=== PATIENT | male | born 1990 | race American Indian/Alaskan Native ===

== ENCOUNTER 2019-03-30 08:55 | Emergency (ER) | payer SELFPAY ==
--- NOTE | 2019-03-30 09:33 | Emergency Department Report ---
ED ENT HPI - General Chief complaint: Dental/Oral Stated complaint: DRY MOUTH 2DAYS Time Seen by Provider: 03/30/19 09:12 Source: patient Mode of arrival: Ambulatory Limitations: No Limitations - History of Present Illness Initial comments: 28-year-old with no past medical history presents to the hospital complaining of spitting blood times one each morning for the past 2 days. Patient states he sleeps under a box fan. He admits to dry nasal and oral passages when he wakes up. He states he spits in the morning he notices blood in his spit. He also has a known dental caries and needs to go see a dentist. Patient was googling online and was concerned he might have cancer. Patient smokes marijuana primarily at bedtime. He is concerned that one lymph node on the right side of his neck might be swollen. He denies dental pain, gum pain, unintentional weight loss, coughing up blood, fever, or bruising. He denies taking anticoagulants, aspirin, Goody powders, or NSAIDs. PMD: None. - Related Data Previous Rx's Medication Instructions Recorded Last Taken Type Sodium Chloride [Saline Nose [place]] 1 - 2 sprays NS Q6HR PRN #1 bottle 03/30/19 Unknown Rx Allergies Allergy/AdvReac Type Severity Reaction Status Date / Time No Known Allergies Allergy Unverified 03/30/19 08:58 ED Dental HPI - General Chief complaint: Dental/Oral Stated complaint: DRY MOUTH 2DAYS Time Seen by Provider: 03/30/19 09:12 Source: patient Mode of arrival: Ambulatory Limitations: No Limitations - Related Data Previous Rx's Medication Instructions Recorded Last Taken Type Sodium Chloride [Saline Nose [place]] 1 - 2 sprays NS Q6HR PRN #1 bottle 03/30/19 Unknown Rx Allergies Allergy/AdvReac Type Severity Reaction Status Date / Time No Known Allergies Allergy Unverified 03/30/19 08:58 ED Review of Systems ROS: Stated complaint: DRY MOUTH 2DAYS Other details as noted in HPI Comment: All other systems reviewed and negative ED Past Medical Hx - Past Medical History Previous Medical History?: No - Surgical History Past Surgical History?: No - Social History Smoking Status: Current Every Day Smoker Substance Use Type: Alcohol, Marijuana - Medications Home Medications: Home Medications Medication Instructions Recorded Confirmed Last Taken Type Sodium Chloride [Saline Nose [place]] 1 - 2 sprays NS Q6HR PRN #1 bottle 03/30/19 Unknown Rx ED Physical Exam - General Limitations: No Limitations - Other Other exam information: Gen.: No acute distress Head: Atraumatic Eyes: Normal appearance EENT: Moist mucous membranes, no bleeding gums, posterior oropharynx normal Neck: Normal appearance, no posterior midline tenderness, no meningismus, no lymphadenopathy Chest: Clear to auscultation bilaterally Cardiovascular: Regular rate and rhythm Abdomen: Normal appearance, soft, nontender, no rebound or guarding, normal bowel sounds Back: Normal appearance, nontender Extremity: Full range of motion, normal appearance Neuro: Alert, clear speech, no focal motor or sensory deficit Psychiatric: Appropriate Skin: No rash, no petechiae or rash ED Course Vital Signs 03/30/19 09:03 Temperature 98.4 F Pulse Rate 91 H Respiratory 18 Rate Blood Pressure 149/77 O2 Sat by Pulse 99 Oximetry ED Medical Decision Making - Differential Diagnosis coagulopathy, thrombocytopenia, dry mouth, epistaxis, Critical Care Time: No Critical care attestation.: If time is entered above; I have spent that time in minutes in the direct care of this critically ill patient, excluding procedure time. ED Disposition Clinical Impression: Spitting blood, Dry mouth Disposition: DC-01 TO HOME OR SELFCARE Is pt being admited?: No Does the pt Need Aspirin: No Condition: Stable Instructions: Mouthwash (Into the mouth) Additional Instructions: Try [id number] Biotene dry mouth mouthwash. Avoid sleeping directly under the fan because this may further dry your nasal and oral passages. Follow with both a dentist and primary care doctor. Return is symptoms worsen as indicated by your discharge instructions Prescriptions: Sodium Chloride [Saline Nose [place]] 1 - 2 sprays NS Q6HR PRN #1 bottle PRN Reason: Dry Nasal Passages Referrals: PRIMARY CARE, [Primary Care Provider] - 3-5 Days [facility] [Provider Group] - 3-5 Days MEKHI SANDOVAL DO [Staff Physician] - 3-5 Days [facility] [Outside] - 3-5 Days Time of Disposition: 09:41
[2019-03-30 09:58] VITALS: BP 146/74
== END 2019-03-30 09:57 | disposition home or self-care (01) ==
LOC: ED 08:55
DX: R04.2 Hemoptysis (principal); R68.2 Dry mouth, unspecified; F17.200 Nicotine dependence, unspecified, uncomplicated; F12.10 Cannabis abuse, uncomplicated; Z79.899 Other long term (current) drug therapy

== ENCOUNTER 2019-08-25 21:00 | Emergency (ER) | payer SELFPAY ==
[2019-08-25 23:54] LABS: Basophils % (Auto) 0.3 % (0.0-1.8); Eosinophils % (Auto) 0.1 % (0.0-4.3); Hematocrit 46.2 % (35.5-45.6); Hemoglobin 15.1 gm/dl (11.8-15.2); Lymphocytes # (Auto) 2.5 K/mm3 (1.2-5.4); Lymphocytes % (Auto) 25.2 % (13.4-35.0); Mean Corpuscular HGB Conc 33 % (32-34); Mean Corpuscular Volume 80 fl (84-94); Monocytes # (Auto) 0.6 K/mm3 (0.0-0.8); Monocytes % (Auto) 6.1 % (0.0-7.3); Platelet Count 281 K/mm3 (140-440); Red Blood Count 5.79 M/mm3 (3.65-5.03); Red Cell Distribution Width 13.6 % (13.2-15.2)
[2019-08-26 00:17] LABS: Alanine Aminotransferase 33 units/L (7-56); BUN/Creatinine Ratio 6; Blood Urea Nitrogen 6 mg/dL (9-20); Hemolysis Index 6
[2019-08-26 00:39] LABS: Bilirubin,Urine NEG (Negative); Blood,Urine NEG (Negative); Color,Urine Yellow (Yellow); Mucus,Urine FEW /HPF; Protein,Urine <15 mg/dL mg/dL (Negative); Urobilinogen,Urine < 2.0 mg/dL (<2.0); WBC,Urine < 1.0 /HPF (0.0-6.0)
--- NOTE | 2019-08-26 01:41 | Emergency Department Report ---
ED General Adult HPI - General Chief complaint: Abdominal Pain Stated complaint: N/V/CONSTIPATION Time Seen by Provider: 08/26/19 01:21 Source: patient Mode of arrival: Ambulatory Limitations: No Limitations - History of Present Illness Initial comments: 28-year-old -[place] male presents to the emergency room complaining of constipation 3 days with nausea and vomiting. Patient reports right upper abdominal pressure with no pain and has nausea. Patient reports his last bowel movement was today but hard and did not feel he emptied very well. Patient also complains of heartburn. Patient states when he belches or pass gas he has relief of pressure. Patient denies any past medical history currently takes no medications on a daily basis and has no known drug allergies. Onset/Timin -: days(s) Location: abdomen Severity scale (0 -10): 5 Quality: other (pressure) Consistency: intermittent Improves with: other (Belching or passing gas) Associated Symptoms: nausea/vomiting Treatments Prior to Arrival: none - Related Data Previous Rx's Medication Instructions Recorded Last Taken Type Sodium Chloride [Saline Nose [place]] 1 - 2 sprays NS Q6HR PRN #1 bottle 03/30/19 Unknown Rx Polyethylene Glycol 3350 [Miralax] 17 gm PO QDAY #119 gram 08/26/19 Unknown Rx Allergies Allergy/AdvReac Type Severity Reaction Status Date / Time No Known Allergies Allergy Unverified 03/30/19 08:58 ED Review of Systems ROS: Stated complaint: N/V/CONSTIPATION Other details as noted in HPI Comment: All other systems reviewed and negative ED Past Medical Hx - Past Medical History Previous Medical History?: No - Surgical History Past Surgical History?: No - Social History Smoking Status: Never Smoker Substance Use Type: Marijuana - Medications Home Medications: Home Medications Medication Instructions Recorded Confirmed Last Taken Type Sodium Chloride [Saline Nose [place]] 1 - 2 sprays NS Q6HR PRN #1 bottle 03/30/19 Unknown Rx Polyethylene Glycol 3350 [Miralax] 17 gm PO QDAY #119 gram 08/26/19 Unknown Rx ED Physical Exam - General Limitations: No Limitations General appearance: alert, in no apparent distress - Head Head exam: Present: atraumatic, normocephalic - Eye Eye exam: Present: normal appearance - ENT ENT exam: Present: mucous membranes moist - Neck Neck exam: Present: normal inspection, full ROM - Respiratory Respiratory exam: Present: normal lung sounds bilaterally. Absent: respiratory distress - Cardiovascular Cardiovascular Exam: Present: regular rate, normal rhythm. Absent: systolic murmur, diastolic murmur, rubs, gallop - GI/Abdominal GI/Abdominal exam: Present: soft, normal bowel sounds, hernia (ventral ). Absent: tenderness, guarding, rebound - Neurological Exam Neurological exam: Present: alert, oriented X3, normal gait - Psychiatric Psychiatric exam: Present: normal affect, normal mood - Skin Skin exam: Present: warm, dry, intact, normal color. Absent: rash ED Course Vital Signs 08/25/19 08/26/19 21:03 03:37 Temperature 98.0 F 98.1 F Pulse Rate 109 H 112 H Respiratory 13 16 Rate Blood Pressure 146/77 Blood Pressure 127/76 [Right] O2 Sat by Pulse 100 100 Oximetry ED Medical Decision Making - Lab Data Result diagrams: 08/25/19 23:27 08/25/19 23:27 - Radiology Data Radiology results: report reviewed Patient: MAURICIO PELAEZ MR# : [id number] : 1990 Acct:[id number] Age/Sex: 28 / M ADM Date: 08/25/19 Loc: ED Attending Dr: Ordering Physician: ASHLEIGH GIRON Date of Service: 08/26/19 Procedure(s): CT abdomen pelvis w con Accession Number(s): [id number] cc: ASHLEIGH GIRON CT ABDOMEN AND PELVIS WITH CONTRAST INDICATION: Right upper quadrant pain/pressure. Constipation. COMPARISON: No relevant prior imaging study available. TECHNIQUE: Axial, coronal and sagittal CT imaging of the abdomen and pelvis was performed after injection of 100 cc Omnipaque [address] scans at this location are performed using CT dose reduction for ALARA by means of automated exposure control. FINDINGS: LOWER CHEST: No significant abnormality. LIVER: No significant abnormality. BILIARY: No significant abnormality. PANCREAS: No significant abnormality. SPLEEN: No significant abnormality. ADRENALS: No significant abnormality. KIDNEYS AND URETERS: No significant abnormality. GI TRACT: No significant abnormality of the stomach, small bowel or colon. Unremarkable appendix. PERITONEUM: No free fluid. No free air. No fluid collection. LYMPH NODES: No significant adenopathy. VASCULATURE: No significant abnormality. URINARY BLADDER: No significant abnormality. REPRODUCTIVE ORGANS: No significant abnormality. ADDITIONAL FINDINGS: None. SKELETAL SYSTEM: No significant abnormality. IMPRESSION: No acute abnormality of the abdomen or pelvis. Signer Name: Shane Khan MD Signed: 08/26/2019 3:09 AM Workstation Name: [id number] Transcribed By: ROME Dictated By: Shane Khan MD Electronically Authenticated By: Shane Khan MD Signed Date/Time: 08/26/19308 DD/ 4 TD/TT: - Medical Decision Making 28-year-old -[place] male presents to the emergency room complaining of constipation 3 days with nausea and vomiting. Patient reports right upper abdominal pressure with no pain and has nausea. Patient reports his last bowel movement was today but hard and did not feel he emptied very well. Patient also complains of heartburn. Patient states when he belches or pass gas he has relief of pressure. Patient denies any past medical history currently takes no medications on a daily basis and has no known drug allergies. Basic labs have been ordered which are stable. KUB has been ordered for abdominal usher rule out constipation or impaction. Critical care attestation.: If time is entered above; I have spent that time in minutes in the direct care of this critically ill patient, excluding procedure time. ED Disposition Clinical Impression: Constipation Qualifiers: Constipation type: unspecified constipation type Qualified Code(s): K59.00 - Constipation, unspecified Abdominal pain Qualifiers: Abdominal location: right lower quadrant Qualified Code(s): R10.31 - Right lower quadrant pain Ventral hernia Qualifiers: Obstruction and gangrene presence: without obstruction or gangrene Qualified Code(s): K43.9 - Ventral hernia without obstruction or gangrene Disposition: - TO HOME OR SELFCARE Is pt being admited?: No Does the pt Need Aspirin: No Condition: Stable Instructions: Ventral Hernia (ED) Additional Instructions: X-rays are negative for any acute findings. I recommended taking MiraLAX daily anterior moving her bowels well. Follow up with a gas worker and general surgeon for your ventral hernia. Prescriptions: Polyethylene Glycol 3350 [Miralax] 17 gm PO QDAY #119 gram Referrals: PRIMARY CARE, [Primary Care Provider] - 3-5 Days MEAGAN CEBALLOS DO [Staff Physician] - 3-5 Days OCHOA ANTONY MD [Staff Physician] - 3-5 Days
--- NOTE | 2019-08-26 01:53 | XRay Report ---
ABDOMEN 1 VIEW INDICATION / CLINICAL INFORMATION: Abdominal pain. Possible umbilical hernia. COMPARISON: None available. FINDINGS: TUBES / LINES: None. BOWEL GAS PATTERN: No significant abnormality. FREE AIR / EXTRALUMINAL GAS: None seen. ADDITIONAL FINDINGS: No significant additional findings. IMPRESSION: No significant abnormality of the abdomen. Signer Name: Shane Khan MD Signed: 08/26/2019 1:49 AM Workstation Name: [id number]
--- NOTE | 2019-08-26 03:14 | Cat Scan Report ---
CT ABDOMEN AND PELVIS WITH CONTRAST INDICATION: Right upper quadrant pain/pressure. Constipation. COMPARISON: No relevant prior imaging study available. TECHNIQUE: Axial, coronal and sagittal CT imaging of the abdomen and pelvis was performed after inje ction of 100 cc Omnipaque [address] scans at this location are performed using CT dose re duction for ALARA by means of automated exposure control. FINDINGS: LOWER CHEST: No significant abnormality. LIVER: No significant abnormality. BILIARY: No significant abnormality. PANCREAS: No significant abnormality. SPLEEN: No significant abnormality. ADRENALS: No significant abnormality. KIDNEYS AND URETERS: No significant abnormality. GI TRACT: No significant abnormality of the stomach, small bowel or colon. Unremarkable appendix. PERITONEUM: No free fluid. No free air. No fluid collection. LYMPH NODES: No significant adenopathy. VASCULATURE: No significant abnormality. URINARY BLADDER: No significant abnormality. REPRODUCTIVE ORGANS: No significant abnormality. ADDITIONAL FINDINGS: None. SKELETAL SYSTEM: No significant abnormality. IMPRESSION: No acute abnormality of the abdomen or pelvis. Signer Name: Shane Khan MD Signed: 08/26/2019 3:09 AM Workstation Name: [id number]
[2019-08-26 03:38] VITALS: BP 127/76
== END 2019-08-26 04:31 | disposition home or self-care (01) ==
LOC: ED 21:00
DX: K43.9 Ventral hernia without obstruction or gangrene (principal); K59.00 Constipation, unspecified; R10.31 Right lower quadrant pain; F12.10 Cannabis abuse, uncomplicated; Z79.899 Other long term (current) drug therapy
CPT/HCPCS: 36415; 74018; 74177; 80053; 81001; 83690; 85025; 99284; Q9967

== ENCOUNTER 2021-02-13 03:39 | Emergency (ER) | payer SELFPAY | END 2021-02-13 03:40 | disposition left against medical advice (07) | LOC: ED 03:39 | DX: R51.9 Headache, unspecified (principal); Z53.21 Procedure and treatment not carried out due to patient leaving prior to being seen by health care provider ==

== ENCOUNTER 2021-04-28 20:47 | Emergency (ER) | payer OTHER ==
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
[2021-04-28] MEDS ORDERED: IBUPROFEN 800 MG TAB PO ONE (22:06)
== END 2021-04-28 22:27 | disposition home or self-care (01) ==
LOC: ED 20:47
DX: M79.18 Myalgia, other site (principal); Z79.899 Other long term (current) drug therapy; V87.7XXA Person injured in collision between other specified motor vehicles (traffic), initial encounter; Y93.89 Activity, other specified; Y92.488 Other paved roadways as the place of occurrence of the external cause; Y99.8 Other external cause status
CPT/HCPCS: 99282